=== PATIENT | female | born 2005 | race Hispanic/Latino ===

== ENCOUNTER 2023-10-29 20:01 | Emergency (ER) | payer SELFPAY ==
[~2023-10-29 20:01] MED LIST: ALBUTEROL S2.5 MG/.5 IN; ALBUTEROL SUL0.083 % IN; ALBUTEROL2.5 MG/3 M IN; AMOXIL400 MG/5 M OR; AMOXIL400 MG/5 M PO; AUGMENTIN250 MG/5 M OR; AUGMENTIN400 MG/5 M OR; BACTRIM DS1 TAB PO; BACTRIM SUSP PO; FLOXIN OTIC OT; NO; NO HOME MEDS; OMNICE1 OR; PRELONE15 MG/5 M1 PO; PROVENTIL HFA INH; ROBITUSSIN AC10 ML OR; SULFATRIM1 ML OR; TRIAMINI4 OR; TYLENOL & COD12.5 ML OR
[2023-10-29] MEDS ORDERED: METOCLOPRAMIDE HCL 10 MG/TAB PO ONE (20:55)
[2023-10-29 21:09] LABS: URINE BILIRUBIN - DIPSTICK Negative (NEGATIVE); URINE BLOOD DIPSTICK Moderate (NEGATIVE); URINE GLUCOSE - DIPSTICK Negative (NEGATIVE); URINE KETONE Negative (NEGATIVE); URINE LEUK ESTERASE Negative (NEGATIVE); URINE NITRITE - DIPSTICK Negative (Negative); URINE PROTEIN - DIPSTICK Negative (NEG-TRACE); URINE SPECIFIC GRAVITY 1.015; URINE UROBILINOGEN - DIPSTICK 0.2 E.U./dL (0.2)
[2023-10-29 21:09] LABS: BASO% 0.4 % (0-3); EOS% 3.5 % (0-8); HEMOGLOBIN 12.3 g/dl (12.0-16.0); IMMATURE GRANULOCYTES 0.3 % (0.0-5.0); MEAN CELL VOLUME 76.2 fL CALC (80.0-100.0); MEAN CORPUSCULAR HGB 24.6 pG CALC (26.0-32.0); MEAN CORPUSCULAR HGB CONC 32.4 g/dL CAL (32.0-36.0); MONO% 10.3 % (2-13); NEUT# 4.09 thou/uL (2.00-7.15); NEUT% 51.5 % (42-76); RED BLOOD COUNT 4.99 mill/uL (4.20-5.60); RED CELL DISTRI WIDTH 16.5 % (11.5-15.5)
[2023-10-29 21:16] LABS: URINE COLOR Yellow
[2023-10-29 21:19] LABS: URINE RBC 0-2 RBC/hpf (0-5); URINE WBC 0-2 WBC/hpf (0-5)
[2023-10-29 21:20] LABS: URINE SQUAMOUS EPITHELIAL CELL FEW EPI/hpf (0-FEW)
[2023-10-29 21:23] LABS: ALBUMIN 4.2 g/dL (3.2-5.0); ALKALINE PHOSPHATASE 75 u/l (38-126); ANION GAP 10 (6-22 (CALC)); BILIRUBIN, TOTAL 0.3 mg/dL (0.02-1.3); BUN 6 mg/dL (8-21); BUN/CREATININE RATIO 13 (12-20 (CALC)); CARBON DIOXIDE 22 mmol/l (22-30); CHLORIDE 107 mmol/l (95-108); CREATININE 0.5 mg/dL (0.5-1.0); ESTIMATED GFR 138 ML/MIN (>=90 (CALC)); LIPASE 45 u/l (23-300); MAGNESIUM 1.9 mg/dL (1.6-2.3); POTASSIUM 3.9 mmol/l (3.5-5.1); SODIUM 135 mmol/l (137-146); TOTAL PROTEIN 7.7 g/dL (6.3-8.2)
[2023-10-29 21:26] LABS: SGOT/AST 42 u/l (14-36)
[2023-10-29 21:47] LABS: BETA-HCG, QUANT(RESULT NUMBER) > 15000 mIU/mL
[2023-10-29 21:53] LABS: TSH, 3RD GENERATION 2.35 uIU/mL (0.47 - 4.68)
[2023-10-29] MEDS ORDERED: PRENATAL + COMP1 PAK PO (22:40)
[2023-10-29] MEDS ORDERED: PROMETHAZINE HY25 M1 PO (22:40)
[2023-10-29 23:42] VITALS: BP 120/78
== END 2023-10-30 | disposition home or self-care (01) | DRG 833 ==
LOC: ED 20:01
PROVIDERS: Internal Medicine
DX: O20.0 Threatened abortion (principal); Z3A.01 Less than 8 weeks gestation of pregnancy